=== PATIENT | male | born 1955 | race Caucasian/White ===

== ENCOUNTER 2023-03-19 15:09 | Inpatient (IN) | payer MEDICARE ==
[2023-03-19 16:07] VITALS: BMI 34.3
[2023-03-19] MEDS ORDERED: HYDROcodone/Acetaminophen 10/325 mg Tablet PO SCH (16:45)
[2023-03-19] MEDS ORDERED: Acetaminophen 325 MG TAB PO PRN (17:03)
[2023-03-19] MEDS ORDERED: Ondansetron ODT 4 MG TAB PO PRN (17:03)
[2023-03-19] MEDS ORDERED: SILDENAFIL CITRATE 100 MG PO PRN (17:21)
[2023-03-19] MEDS ORDERED: ANTIVENIN,CROTALIDAE (ANAVIP) 10 EACH in Sodium Chloride 0.9% 250 ML 250 ML IVPB SCH (18:00)
[2023-03-19] MEDS: Morphine 4 MG/ML VIAL SLOW IVP PRN ×2 (19:22→23:03)
[2023-03-19] MEDS: Lisinopril 5 MG TAB PO SCH (19:23)
[2023-03-19] MEDS: diphenhydrAMINE 25 MG CAP PO PRN (21:11)
[2023-03-19] MEDS: HYDROcodone/Acetaminophen 10/325 mg Tablet PO PRN (21:12)
[2023-03-19 21:28] LABS: INR-International Normal Ratio 1.1; PTT 27.6 sec (22.9-36.1); Prothrombin Time 14.6 sec (12.0-14.7)
[2023-03-20 05:27] LABS: #Eosinphils 0.2 thou/uL (0.0-0.7); #Monocytes 0.6 thou/uL (0.11-0.59); #Neutrophils 4.4 thou/uL (1.40-6.50); %Basophils 0.3 % (0.0-1.0); %Eosinophils 2.6 % (0.0-10.0); %Lymphocytes 28.4 % (21.0-51.0); %Monocytes 8.5 % (0.0-10.0); %Neutrophils 59.9 % (42.0-75.0); Hemoglobin 15.3 g/dL (14.0-18.0); Mean Corpuscular HGB CONC 34.5 g/dL (32.0-36.0); Mean Corpuscular Hemoglobin 31.2 pg (27.0-31.0); Mean Corpuscular Volume 90.4 fl (78.0-98.0); Mean Platelet Volume 9.4 fL (7.4-10.4); Platelet Count 179 10x3/uL (130-400); RBC Distribution Width 12.5 % (11.5-14.5); White Blood Cell (WBC) Count 7.3 10x3/uL (4.8-10.8)
[2023-03-20 05:52] LABS: Anion Gap 9 mmol/L (10-20); BUN (Urea Nitrogen) 16 mg/dL (8.4-25.7); Calc. Creatinine Clearance 92 mL/min (70-130); Calcium 8.2 mg/dL (7.8-10.44); Carbon Dioxide 24 mmol/L (23-31); Chloride 107 mmol/L (98-107); Estimated GFR 64; Glucose 114 mg/dL (80-115); Sodium 136 mmol/L (136-145)
[2023-03-20] MEDS ORDERED: Ferric Subsulfate (ASTRINGYN) 8 GM VIAL ONE (08:12)
[2023-03-20] MEDS: guaiFENesin ER 600 MG TAB PO SCH (08:37)
[2023-03-20] MEDS: Multivitamin W/ Minerals 1 TAB PO SCH (08:37)
[2023-03-20] MEDS: Loratadine 10 MG TAB PO SCH (08:37)
[2023-03-20] MEDS: HYDROcodone/Acetaminophen 10/325 mg Tablet PO PRN ×3 (08:42→23:06)
[2023-03-20] MEDS ORDERED: Lisinopril 5 MG TAB PO SCH (09:00)
[2023-03-20] MEDS: Fluticasone Propionate Nasal Spray 16 gm Bottle NASAL SCH (09:13)
[2023-03-20] MEDS: Morphine 4 MG/ML VIAL SLOW IVP PRN ×3 (11:26→20:47)
[2023-03-20 11:42] LABS: #Eosinphils 0.2 thou/uL (0.0-0.7); #Monocytes 0.7 thou/uL (0.11-0.59); #Neutrophils 3.7 thou/uL (1.40-6.50); %Basophils 0.3 % (0.0-1.0); %Lymphocytes 27.4 % (21.0-51.0); %Monocytes 11.2 % (0.0-10.0); %Neutrophils 57.9 % (42.0-75.0); Hemoglobin 14.5 g/dL (14.0-18.0); Mean Corpuscular HGB CONC 33.5 g/dL (32.0-36.0); Mean Corpuscular Hemoglobin 30.7 pg (27.0-31.0); Mean Corpuscular Volume 91.7 fl (78.0-98.0); Mean Platelet Volume 9.4 fL (7.4-10.4); Platelet Count 181 10x3/uL (130-400); RBC Distribution Width 12.6 % (11.5-14.5); Red Blood Cell (RBC) Count 4.72 mill/uL (4.70-6.10); White Blood Cell (WBC) Count 6.3 10x3/uL (4.8-10.8)
[2023-03-20 11:54] LABS: INR-International Normal Ratio 1.1; PTT 29.1 sec (22.9-36.1); Prothrombin Time 14.5 sec (12.0-14.7)
[2023-03-20 12:07] LABS: ALT (SGPT) 24 U/L (8-55); AST (SGOT) 19 U/L (5-34); Albumin 3.9 g/dL (3.4-4.8); Alkaline Phosphatase 41 U/L (40-110); Anion Gap 14 mmol/L (10-20); BUN (Urea Nitrogen) 17 mg/dL (8.4-25.7); Bilirubin, Total 1.1 mg/dL (0.2-1.2); Calc. Creatinine Clearance 89 mL/min (70-130); Calcium 8.4 mg/dL (7.8-10.44); Carbon Dioxide 24 mmol/L (23-31); Chloride 105 mmol/L (98-107); Estimated GFR 61; Glucose 105 mg/dL (80-115); Potassium 4.5 mmol/L (3.5-5.1); Protein, Total 6.9 g/dL (5.8-8.1); Sodium 138 mmol/L (136-145)
[2023-03-20] MEDS: ANTIVENIN,CROTALIDAE (ANAVIP) 4 EACH in Sodium Chloride 0.9% 250 ML 250 ML IVPB PRN (12:50)
[2023-03-20 16:58] LABS: #Eosinphils 0.3 thou/uL (0.0-0.7); #Monocytes 0.7 thou/uL (0.11-0.59); #Neutrophils 3.7 thou/uL (1.40-6.50); %Basophils 0.1 % (0.0-1.0); %Eosinophils 3.6 % (0.0-10.0); %Monocytes 10.4 % (0.0-10.0); %Neutrophils 53.8 % (42.0-75.0); Hemoglobin 14.1 g/dL (14.0-18.0); Mean Corpuscular HGB CONC 34.3 g/dL (32.0-36.0); Mean Corpuscular Hemoglobin 31.5 pg (27.0-31.0); Mean Corpuscular Volume 91.7 fl (78.0-98.0); Mean Platelet Volume 9.4 fL (7.4-10.4); Platelet Count 171 10x3/uL (130-400); RBC Distribution Width 12.7 % (11.5-14.5); Red Blood Cell (RBC) Count 4.48 mill/uL (4.70-6.10); White Blood Cell (WBC) Count 6.9 10x3/uL (4.8-10.8)
[2023-03-20 17:13] LABS: INR-International Normal Ratio 1.1; Prothrombin Time 14.3 sec (12.0-14.7)
[2023-03-20 17:20] LABS: ALT (SGPT) 23 U/L (8-55); AST (SGOT) 17 U/L (5-34); Albumin 3.8 g/dL (3.4-4.8); Alkaline Phosphatase 38 U/L (40-110); Anion Gap 12 mmol/L (10-20); BUN (Urea Nitrogen) 18 mg/dL (8.4-25.7); Bilirubin, Total 0.8 mg/dL (0.2-1.2); Calc. Creatinine Clearance 86 mL/min (70-130); Calcium 8.4 mg/dL (7.8-10.44); Carbon Dioxide 22 mmol/L (23-31); Chloride 107 mmol/L (98-107); Estimated GFR 58; Glucose 117 mg/dL (80-115); Potassium 4.2 mmol/L (3.5-5.1); Protein, Total 6.8 g/dL (5.8-8.1); Sodium 137 mmol/L (136-145)
[2023-03-20] MEDS: Lisinopril 5 MG TAB PO SCH (20:35)
[2023-03-20] MEDS: diphenhydrAMINE 25 MG CAP PO PRN (20:44)
[2023-03-20] MEDS ORDERED: hydrOXYzine 25 MG TAB PO SCH (23:30)
[2023-03-20] MEDS ORDERED: traMADol HCl 50 MG TAB PO SCH (23:45)
[2023-03-20] MEDS ORDERED: Acetaminophen 500 MG TAB PO SCH (23:45)
[2023-03-20] MEDS ORDERED: fentaNYL 50 mcg/mL 1 mL Vial SLOW IVP PRN (23:49)
[2023-03-21 00:49] LABS: #Eosinphils 0.3 thou/uL (0.0-0.7); #Monocytes 0.8 thou/uL (0.11-0.59); #Neutrophils 3.4 thou/uL (1.40-6.50); %Basophils 0.4 % (0.0-1.0); %Eosinophils 3.9 % (0.0-10.0); %Lymphocytes 34.5 % (21.0-51.0); %Monocytes 11.2 % (0.0-10.0); %Neutrophils 49.9 % (42.0-75.0); Mean Corpuscular HGB CONC 34.7 g/dL (32.0-36.0); Mean Corpuscular Hemoglobin 31.4 pg (27.0-31.0); Mean Corpuscular Volume 90.6 fl (78.0-98.0); Mean Platelet Volume 9.3 fL (7.4-10.4); Platelet Count 166 10x3/uL (130-400); RBC Distribution Width 12.5 % (11.5-14.5); Red Blood Cell (RBC) Count 4.46 mill/uL (4.70-6.10); White Blood Cell (WBC) Count 6.9 10x3/uL (4.8-10.8)
[2023-03-21 01:09] LABS: INR-International Normal Ratio 1.1; PTT 29.8 sec (22.9-36.1); Prothrombin Time 14.4 sec (12.0-14.7)
[2023-03-21 01:11] LABS: ALT (SGPT) 22 U/L (8-55); AST (SGOT) 18 U/L (5-34); Albumin 3.8 g/dL (3.4-4.8); Alkaline Phosphatase 38 U/L (40-110); Anion Gap 12 mmol/L (10-20); BUN (Urea Nitrogen) 18 mg/dL (8.4-25.7); Bilirubin, Total 0.7 mg/dL (0.2-1.2); Calc. Creatinine Clearance 88 mL/min (70-130); Calcium 8.5 mg/dL (7.8-10.44); Carbon Dioxide 25 mmol/L (23-31); Chloride 104 mmol/L (98-107); Estimated GFR 61; Globulin 2.9 g/dL (2.4-3.5); Glucose 110 mg/dL (80-115); Protein, Total 6.7 g/dL (5.8-8.1); Sodium 137 mmol/L (136-145)
[2023-03-21] MEDS: ANTIVENIN,CROTALIDAE (ANAVIP) 4 EACH in Sodium Chloride 0.9% 250 ML 250 ML IVPB PRN (02:01)
[2023-03-21] MEDS: Fluticasone Propionate Nasal Spray 16 gm Bottle NASAL SCH (08:58)
[2023-03-21] MEDS: HYDROcodone/Acetaminophen 10/325 mg Tablet PO PRN ×3 (09:26→20:32)
[2023-03-21] MEDS: Multivitamin W/ Minerals 1 TAB PO SCH (09:26)
[2023-03-21] MEDS: guaiFENesin ER 600 MG TAB PO SCH (09:26)
[2023-03-21] MEDS: Loratadine 10 MG TAB PO SCH (09:26)
[2023-03-21 09:53] LABS: #Eosinphils 0.3 thou/uL (0.0-0.7); #Monocytes 0.7 thou/uL (0.11-0.59); #Neutrophils 3.8 thou/uL (1.40-6.50); %Basophils 0.2 % (0.0-1.0); %Eosinophils 4.5 % (0.0-10.0); %Lymphocytes 21.7 % (21.0-51.0); %Monocytes 11.9 % (0.0-10.0); %Neutrophils 61.5 % (42.0-75.0); Hemoglobin 13.7 g/dL (14.0-18.0); Mean Corpuscular HGB CONC 33.3 g/dL (32.0-36.0); Mean Corpuscular Hemoglobin 30.6 pg (27.0-31.0); Mean Corpuscular Volume 91.9 fl (78.0-98.0); Mean Platelet Volume 9.3 fL (7.4-10.4); Platelet Count 164 10x3/uL (130-400); RBC Distribution Width 12.3 % (11.5-14.5); Red Blood Cell (RBC) Count 4.47 mill/uL (4.70-6.10); White Blood Cell (WBC) Count 6.2 10x3/uL (4.8-10.8)
[2023-03-21 10:06] LABS: PTT 25.3 sec (22.9-36.1)
[2023-03-21 10:59] LABS: ALT (SGPT) 23 U/L (8-55); AST (SGOT) 21 U/L (5-34); Albumin 3.6 g/dL (3.4-4.8); Alkaline Phosphatase 38 U/L (40-110); Anion Gap 17 mmol/L (10-20); BUN (Urea Nitrogen) 17 mg/dL (8.4-25.7); Bilirubin, Total 0.6 mg/dL (0.2-1.2); Calc. Creatinine Clearance 94 mL/min (70-130); Calcium 9.1 mg/dL (7.8-10.44); Carbon Dioxide 15 mmol/L (23-31); Chloride 108 mmol/L (98-107); Estimated GFR 65; Globulin 3.4 g/dL (2.4-3.5); Glucose 110 mg/dL (80-115); Potassium 4.1 mmol/L (3.5-5.1); Sodium 136 mmol/L (136-145)
[2023-03-21 13:09] LABS: Bacteria/HPF None Seen HPF (None Seen); Bilirubin Negative (Negative); Blood, Urine Negative (Negative); CAUTI Indications for Culture Dysuria,urgency,freq; Clarity Clear (Clear); Glucose, Urine (Dipstick) Normal (Negative); Ketone, Urine Negative (Negative); Leukocyte Negative Leu/uL (Negative); Nitrite Negative (Negative); Protein, Urine (Dipstick) Negative (Neg-Trace); RBC/HPF 0-3 HPF (0-3); Specific Gravity, Urine 1.012 (1.002-1.036); Squamous Epithelial None Seen HPF (0-3); Urobilinogen Normal mg/dL (Less than 2); WBC/HPF 0-3 HPF (0-3)
[2023-03-21] MEDS: traMADol HCl 50 MG TAB PO PRN (13:09)
[2023-03-21 13:11] LABS: Urine Culture Reflex No No
[2023-03-21] MEDS: Lisinopril 5 MG TAB PO SCH (20:31)
[2023-03-22 06:38] LABS: Prothrombin Time 13.6 sec (12.0-14.7)
[2023-03-22 07:43] VITALS: BP 132/71; TEMP 98.7
[2023-03-22] MEDS: guaiFENesin ER 600 MG TAB PO SCH (08:20)
[2023-03-22] MEDS: Loratadine 10 MG TAB PO SCH (08:20)
[2023-03-22] MEDS: HYDROcodone/Acetaminophen 10/325 mg Tablet PO PRN (08:20)
[2023-03-22] MEDS: Multivitamin W/ Minerals 1 TAB PO SCH (08:20)
[2023-03-22] MEDS: Fluticasone Propionate Nasal Spray 16 gm Bottle NASAL SCH (08:22)
[2023-03-22] MEDS: traMADol HCl 50 MG TAB PO PRN (10:58)
== END 2023-03-22 11:01 | disposition home or self-care (01) | DRG 918 ==
LOC: 2SW 15:49 → OBSVTOIN 03-20 15:10 → T4-B 03-21 07:33
PROVIDERS: ADMIT Internal Medicine; ATTEND Internal Medicine
DX: T63.091A Toxic effect of venom of other snake, accidental (unintentional), initial encounter (principal); Y92.007 Garden or yard of unspecified non-institutional (private) residence as the place of occurrence of the external cause; I10 Essential (primary) hypertension; Z79.899 Other long term (current) drug therapy; Z90.89 Acquired absence of other organs; Z82.49 Family history of ischemic heart disease and other diseases of the circulatory system; Z80.9 Family history of malignant neoplasm, unspecified; Z82.3 Family history of stroke; Z88.5 Allergy status to narcotic agent; R33.9 Retention of urine, unspecified
CPT/HCPCS: 36415; 80048; 80053; 81001; 85025; 85384; 85610; 85730; J0841; J2270; J3010; J7050